=== PATIENT | female | born 1940 | race African-American/Black ===

== ENCOUNTER 2022-06-29 16:01 | Inpatient (IN) ==
[2022-06-29] MEDS ORDERED: SODIUM CHLORIDE 0.9% 1,000 ML IV STA (17:02)
[2022-06-29 18:29] LABS: Basophils % 0.4 % (0.0-0.8); Eosinophils # 0.1 10*3/uL (0.0-0.87); Eosinophils % 1.1 % (0.00-10.9); Immature Granulocytes % 0.5 %; Immature Granulocytes Absolute 0.04 #; Lymphocytes # 1.3 10*3/uL (1.4-4.0); Lymphocytes % 17.6 % (21.3-54.2); Mean Corpuscular HGB Conc 32.7 GM/DL (32-36); Mean Corpuscular Volume 89.7 FL (87-102); Mean Platelet Volume 9.3 FL (9.6-12.0); Monocytes # 0.6 10*3/uL (0.11-0.8); Monocytes % 7.7 % (1.7-12.7); Neutrophils % 72.7 % (38.7-73.9); Platelet Count 195 T/CUMM (130-400); Red Blood Count 5.46 MC/CUMM (3.8-5.5); Red Cell Distribution Width 12.9 % (9.3-17.3); White Blood Count 7.6 T/CUMM (4-12)
[2022-06-29 18:49] LABS: Alanine Aminotransferase 26 U/L (13-56); Albumin 2.8 G/DL (3.4-5.0); Alkaline Phosphatase 84 U/L (45-117); Aspartate Amino Transferase 39 U/L (0-37); Bilirubin,Total < 0.39 MG/DL (0.20-1.00); Blood Urea Nitrogen 15 MG/DL (7-18); Calcium 9.5 MG/DL (8.5-10.1); Carbon Dioxide 25 MMOL/L (21-32); Chloride 104 MMOL/L (98-107); Glucose 163 MG/DL (74-106); Osmolality,Calculated 277.8 MOS/KG (273-304); Potassium 3.6 MMOL/L (3.5-5.1); Sodium 137 MMOL/L (136-145); Total Protein 7.8 G/DL (6.4-8.2)
[2022-06-29 19:27] LABS: Urine Appearance Slightly Cloudy (Clear); Urine Color Yellow (Yellow); Urine Specific Gravity >= 1.030 (1.001-1.035); Urine pH 5.5 (4.5-8.0)
[2022-06-29 19:28] LABS: Bacteria,Urine Many /HPF (Few); Bilirubin,Urine Negative (Negative); Blood, Urine Small mg/dL (Negative); Glucose,Urine (UA) Negative (Negative); Ketones,Urine 15 mg/dL (Negative); Mucus,Urine Occasional /LPF (Occasional); Nitrite,Urine Positive (Negative); Protein,Urine 30 mg/dL (Negative); RBC,Urine 1 /HPF (0-4); Squamous Epithelial Cell,Urine Occasional /HPF (0-10); Urine Urobilinogen 0.2 eU/dL (<2.0)
[2022-06-29] MEDS ORDERED: cefTRIAXone 1,000 MG in SODIUM CHLORIDE 0.9% 100 ML IV STA (19:46)
[2022-06-29] MEDS ORDERED: GLUCAGON 1 MG VIAL IM PRN (20:28)
[2022-06-29] MEDS ORDERED: hydrALAZINE 20 MG/1 ML VIAL IV PRN (20:28)
[2022-06-29] MEDS ORDERED: DEXTROSE 10% 250 ML BAG IV PRN (20:28)
[2022-06-29] MEDS ORDERED: ACETAMINOPHEN 325 MG TABLET PO PRN (20:28)
[2022-06-29] MEDS ORDERED: ONDANSETRON 4 MG/2 ML VIAL IV PRN (20:28)
[2022-06-29] MEDS: SODIUM CHLORIDE 0.9% 1,000 ML IV SCH (21:15)
[2022-06-29 21:29] LABS: Thyroid Stimulating Hormone 1.05 uIU/ml (0.358-3.74)
[2022-06-29] MEDS: ENOXAPARIN 40 MG/0.4 ML SYRINGE SUBCUT SCH (21:45)
[2022-06-29] MEDS: INSULIN REGULAR 100 UNIT/ML SUBCUT SCH (21:58)
[2022-06-30] MEDS: MIRTAZAPINE 15 MG TABLET PO SCH ×2 (00:12→21:26)
[2022-06-30 01:04] LABS: Basophils % 0.3 % (0.0-0.8); Eosinophils % 0.2 % (0.00-10.9); Hematocrit 45.2 VOL% (35.7-47.0); Hemoglobin 14.4 GM/DL (12.0-16.0); Immature Granulocytes % 0.3 %; Immature Granulocytes Absolute 0.02 #; Lymphocytes # 1.6 10*3/uL (1.4-4.0); Lymphocytes % 28.3 % (21.3-54.2); Mean Corpuscular HGB Conc 31.9 GM/DL (32-36); Mean Corpuscular Volume 89.9 FL (87-102); Mean Platelet Volume 9.4 FL (9.6-12.0); Monocytes # 0.5 10*3/uL (0.11-0.8); Monocytes % 8.7 % (1.7-12.7); Neutrophils % 62.2 % (38.7-73.9); Platelet Count 165 T/CUMM (130-400); Red Blood Count 5.03 MC/CUMM (3.8-5.5); Red Cell Distribution Width 12.8 % (9.3-17.3); White Blood Count 5.8 T/CUMM (4-12)
[2022-06-30 01:27] LABS: Alanine Aminotransferase 21 U/L (13-56); Albumin 2.3 G/DL (3.4-5.0); Alkaline Phosphatase 66 U/L (45-117); Aspartate Amino Transferase 38 U/L (0-37); Bilirubin,Total < 0.39 MG/DL (0.20-1.00); Blood Urea Nitrogen 14 MG/DL (7-18); Calcium 8.5 MG/DL (8.5-10.1); Carbon Dioxide 22 MMOL/L (21-32); Chloride 110 MMOL/L (98-107); Cholesterol 124 MG/DL (50-200); Glucose 116 MG/DL (74-106); HDL Cholesterol 49 MG/DL (40-60); Osmolality,Calculated 282.3 MOS/KG (273-304); Potassium 3.4 MMOL/L (3.5-5.1); Risk Ratio 2.53; Sodium 141 MMOL/L (136-145); Total Protein 6.3 G/DL (6.4-8.2); Triglycerides 72 MG/DL (2-150); VLDL Cholesterol 14.4 MG/DL
[2022-06-30 05:45] LABS: Folate 13.02 NG/ML (5.38-24.0)
[2022-06-30] MEDS: INSULIN REGULAR 100 UNIT/ML SUBCUT SCH ×4 (11:39→21:26)
[2022-06-30] MEDS: SODIUM CHLORIDE 0.9% 1,000 ML IV SCH (12:04)
[2022-06-30] MEDS: PANTOPRAZOLE 40 MG TABLET PO SCH (12:14)
[2022-06-30] MEDS ORDERED: POTASSIUM CHLORIDE 20 MEQ TABLET PO ONE (15:00)
[2022-06-30] MEDS: amLODIPine 5 MG TABLET PO SCH (16:46)
[2022-06-30] MEDS: ENOXAPARIN 40 MG/0.4 ML SYRINGE SUBCUT SCH (21:26)
[2022-06-30] MEDS: DONEPEZIL 5 MG TABLET PO SCH (21:26)
[2022-06-30] MEDS: cefTRIAXone 1,000 MG in SODIUM CHLORIDE 0.9% 100 ML IV SCH (23:06)
[2022-07-01] MEDS: SODIUM CHLORIDE 0.9% 1,000 ML IV SCH ×2 (02:30→15:40)
[2022-07-01 05:03] LABS: Basophils % 0.4 % (0.0-0.8); Eosinophils % 0.2 % (0.00-10.9); Hematocrit 38.9 VOL% (35.7-47.0); Hemoglobin 12.3 GM/DL (12.0-16.0); Immature Granulocytes % 0.4 %; Immature Granulocytes Absolute 0.02 #; Lymphocytes # 2.3 10*3/uL (1.4-4.0); Lymphocytes % 44.6 % (21.3-54.2); Mean Corpuscular HGB Conc 31.6 GM/DL (32-36); Mean Corpuscular Volume 92.2 FL (87-102); Mean Platelet Volume 9.3 FL (9.6-12.0); Monocytes # 0.4 10*3/uL (0.11-0.8); Monocytes % 7.9 % (1.7-12.7); Neutrophils % 46.5 % (38.7-73.9); Platelet Count 184 T/CUMM (130-400); Red Blood Count 4.22 MC/CUMM (3.8-5.5); Red Cell Distribution Width 13.1 % (9.3-17.3); White Blood Count 5.1 T/CUMM (4-12)
[2022-07-01 05:26] LABS: Calcium 8.4 MG/DL (8.5-10.1); Osmolality,Calculated 286.8 MOS/KG (273-304); Potassium 3.3 MMOL/L (3.5-5.1)
[2022-07-01] MEDS: INSULIN REGULAR 100 UNIT/ML SUBCUT SCH ×4 (08:42→21:36)
[2022-07-01] MEDS: amLODIPine 5 MG TABLET PO SCH (08:42)
[2022-07-01] MEDS: PANTOPRAZOLE 40 MG TABLET PO SCH (08:42)
[2022-07-01] MEDS ORDERED: POTASSIUM CHLORIDE 20 MEQ TABLET PO ONE (11:00)
[2022-07-01] MEDS: MIRTAZAPINE 15 MG TABLET PO SCH (20:56)
[2022-07-01] MEDS: DONEPEZIL 5 MG TABLET PO SCH (20:56)
[2022-07-01] MEDS: cefTRIAXone 1,000 MG in SODIUM CHLORIDE 0.9% 100 ML IV SCH (20:57)
[2022-07-01] MEDS: ENOXAPARIN 40 MG/0.4 ML SYRINGE SUBCUT SCH (20:57)
[2022-07-02 05:05] LABS: Basophils % 0.5 % (0.0-0.8); Eosinophils % 0.6 % (0.00-10.9); Hematocrit 38.5 VOL% (35.7-47.0); Hemoglobin 12.2 GM/DL (12.0-16.0); Immature Granulocytes % 0.3 %; Immature Granulocytes Absolute 0.02 #; Lymphocytes # 3.1 10*3/uL (1.4-4.0); Lymphocytes % 46.6 % (21.3-54.2); Mean Corpuscular HGB Conc 31.7 GM/DL (32-36); Mean Corpuscular Volume 91.4 FL (87-102); Mean Platelet Volume 9.3 FL (9.6-12.0); Monocytes # 0.4 10*3/uL (0.11-0.8); Monocytes % 5.5 % (1.7-12.7); Neutrophils % 46.5 % (38.7-73.9); Platelet Count 196 T/CUMM (130-400); Red Blood Count 4.21 MC/CUMM (3.8-5.5); Red Cell Distribution Width 13.1 % (9.3-17.3); White Blood Count 6.6 T/CUMM (4-12)
[2022-07-02 05:25] LABS: Calcium 7.7 MG/DL (8.5-10.1); Osmolality,Calculated 286.6 MOS/KG (273-304); Potassium 3.2 MMOL/L (3.5-5.1)
[2022-07-02] MEDS: SODIUM CHLORIDE 0.9% 1,000 ML IV SCH ×2 (05:35→17:25)
[2022-07-02] MEDS: POTASSIUM CHLORIDE 20 MEQ TABLET PO PRN ×4 (06:08→12:50)
[2022-07-02] MEDS: PANTOPRAZOLE 40 MG TABLET PO SCH (08:15)
[2022-07-02] MEDS: amLODIPine 5 MG TABLET PO SCH (08:15)
[2022-07-02] MEDS: INSULIN REGULAR 100 UNIT/ML SUBCUT SCH ×4 (08:19→20:35)
[2022-07-02] MEDS ORDERED: POTASSIUM CHLORIDE 20 MEQ TABLET PO ONE (10:56)
[2022-07-02] MEDS: ENOXAPARIN 40 MG/0.4 ML SYRINGE SUBCUT SCH (20:34)
[2022-07-02] MEDS: MIRTAZAPINE 15 MG TABLET PO SCH (20:34)
[2022-07-02] MEDS: DONEPEZIL 5 MG TABLET PO SCH (20:34)
[2022-07-02] MEDS: cefTRIAXone 1,000 MG in SODIUM CHLORIDE 0.9% 100 ML IV SCH (20:35)
[2022-07-03 06:06] LABS: Basophils % 0.3 % (0.0-0.8); Eosinophils # 0.1 10*3/uL (0.0-0.87); Hematocrit 39.1 VOL% (35.7-47.0); Hemoglobin 12.8 GM/DL (12.0-16.0); Immature Granulocytes % 0.4 %; Immature Granulocytes Absolute 0.03 #; Lymphocytes # 3.7 10*3/uL (1.4-4.0); Lymphocytes % 46.9 % (21.3-54.2); Mean Corpuscular HGB Conc 32.7 GM/DL (32-36); Mean Corpuscular Volume 89.9 FL (87-102); Mean Platelet Volume 9.6 FL (9.6-12.0); Monocytes # 0.4 10*3/uL (0.11-0.8); Monocytes % 5.2 % (1.7-12.7); Neutrophils % 46.2 % (38.7-73.9); Platelet Count 256 T/CUMM (130-400); Red Blood Count 4.35 MC/CUMM (3.8-5.5); Red Cell Distribution Width 12.7 % (9.3-17.3); White Blood Count 7.8 T/CUMM (4-12)
[2022-07-03 06:18] LABS: Calcium 8.5 MG/DL (8.5-10.1); Osmolality,Calculated 274.4 MOS/KG (273-304); Potassium 3.5 MMOL/L (3.5-5.1)
[2022-07-03] MEDS: SODIUM CHLORIDE 0.9% 1,000 ML IV SCH ×3 (06:46→22:06)
[2022-07-03] MEDS: INSULIN REGULAR 100 UNIT/ML SUBCUT SCH ×4 (08:27→22:04)
[2022-07-03] MEDS: PANTOPRAZOLE 40 MG TABLET PO SCH (08:29)
[2022-07-03] MEDS: amLODIPine 5 MG TABLET PO SCH (08:29)
[2022-07-03] MEDS ORDERED: REMDESIVIR 100 MG in SODIUM CHLORIDE 0.9% 100 ML IV SCH (09:00)
[2022-07-03] MEDS ORDERED: POLYETHYLENE GLYCOL POWDER 17 GM PACK PO PRN (10:57)
[2022-07-03] MEDS ORDERED: MAGNESIUM HYDROXIDE SUSP 30 ML UDCUP PO ONE (10:57)
[2022-07-03] MEDS ORDERED: REMDESIVIR 200 MG in SODIUM CHLORIDE 0.9% 210 ML IV ONE (11:00)
[2022-07-03] MEDS: ZINC SULFATE 220 MG CAPSULE PO SCH (11:44)
[2022-07-03] MEDS: CHOLECALCIFEROL 400 UNIT TABLET PO SCH (11:44)
[2022-07-03] MEDS: ENOXAPARIN 40 MG/0.4 ML SYRINGE SUBCUT SCH (22:04)
[2022-07-03] MEDS: cefTRIAXone 1,000 MG in SODIUM CHLORIDE 0.9% 100 ML IV SCH (22:05)
[2022-07-03] MEDS: DONEPEZIL 5 MG TABLET PO SCH (22:05)
[2022-07-03] MEDS: MIRTAZAPINE 15 MG TABLET PO SCH (22:05)
[2022-07-03] MEDS: ASCORBIC ACID 500 MG TABLET PO SCH (22:05)
[2022-07-04 05:33] LABS: Basophils % 0.4 % (0.0-0.8); Eosinophils # 0.1 10*3/uL (0.0-0.87); Hematocrit 36.1 VOL% (35.7-47.0); Hemoglobin 11.7 GM/DL (12.0-16.0); Immature Granulocytes % 0.4 %; Immature Granulocytes Absolute 0.03 #; Lymphocytes # 2.7 10*3/uL (1.4-4.0); Lymphocytes % 38.2 % (21.3-54.2); Mean Corpuscular HGB Conc 32.4 GM/DL (32-36); Mean Corpuscular Volume 89.8 FL (87-102); Mean Platelet Volume 9.3 FL (9.6-12.0); Monocytes # 0.5 10*3/uL (0.11-0.8); Monocytes % 6.9 % (1.7-12.7); Neutrophils % 53.1 % (38.7-73.9); Platelet Count 277 T/CUMM (130-400); Red Blood Count 4.02 MC/CUMM (3.8-5.5); Red Cell Distribution Width 12.7 % (9.3-17.3); White Blood Count 7.2 T/CUMM (4-12)
[2022-07-04 05:52] LABS: Alanine Aminotransferase 30 U/L (13-56); Albumin 1.8 G/DL (3.4-5.0); Alkaline Phosphatase 62 U/L (45-117); Aspartate Amino Transferase 36 U/L (0-37); Bilirubin,Total < 0.39 MG/DL (0.20-1.00); Blood Urea Nitrogen 10 MG/DL (7-18); Calcium 8.2 MG/DL (8.5-10.1); Carbon Dioxide 24 MMOL/L (21-32); Chloride 110 MMOL/L (98-107); Glucose 124 MG/DL (74-106); Osmolality,Calculated 280.3 MOS/KG (273-304); Potassium 3.6 MMOL/L (3.5-5.1); Sodium 141 MMOL/L (136-145); Total Protein 5.6 G/DL (6.4-8.2)
[2022-07-04 07:57] LABS: Platelet Estimate Normal
[2022-07-04] MEDS: INSULIN REGULAR 100 UNIT/ML SUBCUT SCH ×4 (08:35→20:50)
[2022-07-04] MEDS: amLODIPine 5 MG TABLET PO SCH (10:13)
[2022-07-04] MEDS: CHOLECALCIFEROL 400 UNIT TABLET PO SCH (10:13)
[2022-07-04] MEDS: REMDESIVIR 100 MG in SODIUM CHLORIDE 0.9% 100 ML IV SCH (10:13)
[2022-07-04] MEDS: ASCORBIC ACID 500 MG TABLET PO SCH ×2 (10:13→20:50)
[2022-07-04] MEDS: PANTOPRAZOLE 40 MG TABLET PO SCH (10:13)
[2022-07-04] MEDS: ZINC SULFATE 220 MG CAPSULE PO SCH (10:13)
[2022-07-04] MEDS ORDERED: cefTRIAXone 1,000 MG in SODIUM CHLORIDE 0.9% 100 ML IV SCH (14:30)
[2022-07-04] MEDS: DOXYCYCLINE HYCLATE INJ 100 MG in SODIUM CHLORIDE 0.9% 100 ML IV SCH (17:08)
[2022-07-04] MEDS: SODIUM CHLORIDE 0.9% 1,000 ML IV SCH (17:37)
[2022-07-04] MEDS: ENOXAPARIN 40 MG/0.4 ML SYRINGE SUBCUT SCH (20:50)
[2022-07-04] MEDS: DONEPEZIL 5 MG TABLET PO SCH (20:50)
[2022-07-04] MEDS: MIRTAZAPINE 15 MG TABLET PO SCH (20:50)
[2022-07-04] MEDS: cefTRIAXone 1,000 MG in SODIUM CHLORIDE 0.9% 100 ML IV SCH (22:27)
[2022-07-05] MEDS: SODIUM CHLORIDE 0.9% 1,000 ML IV SCH ×2 (02:37→18:01)
[2022-07-05] MEDS: DOXYCYCLINE HYCLATE INJ 100 MG in SODIUM CHLORIDE 0.9% 100 ML IV SCH ×2 (02:38→15:22)
[2022-07-05 05:43] LABS: Alanine Aminotransferase 27 U/L (13-56); Alkaline Phosphatase 65 U/L (45-117); Aspartate Amino Transferase 26 U/L (0-37); Bilirubin,Total < 0.39 MG/DL (0.20-1.00); Blood Urea Nitrogen 10 MG/DL (7-18); Calcium 8.1 MG/DL (8.5-10.1); Carbon Dioxide 27 MMOL/L (21-32); Chloride 112 MMOL/L (98-107); Glucose 104 MG/DL (74-106); Potassium 3.4 MMOL/L (3.5-5.1); Sodium 143 MMOL/L (136-145); Total Protein 5.6 G/DL (6.4-8.2)
[2022-07-05] MEDS: REMDESIVIR 100 MG in SODIUM CHLORIDE 0.9% 100 ML IV SCH (09:57)
[2022-07-05] MEDS: PANTOPRAZOLE 40 MG TABLET PO SCH (09:57)
[2022-07-05] MEDS: CHOLECALCIFEROL 400 UNIT TABLET PO SCH (09:57)
[2022-07-05] MEDS: ZINC SULFATE 220 MG CAPSULE PO SCH (09:57)
[2022-07-05] MEDS: ASCORBIC ACID 500 MG TABLET PO SCH ×2 (09:57→22:04)
[2022-07-05] MEDS: amLODIPine 5 MG TABLET PO SCH (09:58)
[2022-07-05] MEDS: INSULIN REGULAR 100 UNIT/ML SUBCUT SCH ×4 (11:14→22:18)
[2022-07-05] MEDS ORDERED: POTASSIUM CHLORIDE 20 MEQ TABLET PO ONE (11:46)
[2022-07-05] MEDS: DONEPEZIL 5 MG TABLET PO SCH (22:04)
[2022-07-05] MEDS: MIRTAZAPINE 15 MG TABLET PO SCH (22:05)
[2022-07-05] MEDS: cefTRIAXone 1,000 MG in SODIUM CHLORIDE 0.9% 100 ML IV SCH (22:50)
[2022-07-05] MEDS: ENOXAPARIN 40 MG/0.4 ML SYRINGE SUBCUT SCH (22:50)
[2022-07-06] MEDS: DOXYCYCLINE HYCLATE INJ 100 MG in SODIUM CHLORIDE 0.9% 100 ML IV SCH ×2 (02:46→16:02)
[2022-07-06 07:06] LABS: Basophils # 0.1 10*3/uL (0.0-0.2); Basophils % 0.4 % (0.0-0.8); Eosinophils # 0.1 10*3/uL (0.0-0.87); Eosinophils % 0.6 % (0.00-10.9); Hematocrit 42.7 VOL% (35.7-47.0); Hemoglobin 14.1 GM/DL (12.0-16.0); Immature Granulocytes % 0.6 %; Immature Granulocytes Absolute 0.07 #; Lymphocytes # 3.1 10*3/uL (1.4-4.0); Lymphocytes % 25.4 % (21.3-54.2); Mean Platelet Volume 9.2 FL (9.6-12.0); Monocytes # 0.9 10*3/uL (0.11-0.8); Monocytes % 7.1 % (1.7-12.7); Neutrophils % 65.9 % (38.7-73.9); Platelet Count 399 T/CUMM (130-400); White Blood Count 12.2 T/CUMM (4-12)
[2022-07-06 07:41] LABS: Osmolality,Calculated 274.7 MOS/KG (273-304); Potassium 3.5 MMOL/L (3.5-5.1)
[2022-07-06] MEDS: amLODIPine 5 MG TABLET PO SCH ×2 (10:01→10:18)
[2022-07-06] MEDS: ZINC SULFATE 220 MG CAPSULE PO SCH ×2 (10:01→10:18)
[2022-07-06] MEDS: ASCORBIC ACID 500 MG TABLET PO SCH ×3 (10:01→22:00)
[2022-07-06] MEDS: INSULIN REGULAR 100 UNIT/ML SUBCUT SCH ×5 (10:02→21:45)
[2022-07-06] MEDS: PANTOPRAZOLE 40 MG TABLET PO SCH ×2 (10:02→10:18)
[2022-07-06] MEDS: CHOLECALCIFEROL 400 UNIT TABLET PO SCH ×2 (10:02→10:18)
[2022-07-06] MEDS: ENOXAPARIN 40 MG/0.4 ML SYRINGE SUBCUT SCH (21:59)
[2022-07-06] MEDS: cefTRIAXone 1,000 MG in SODIUM CHLORIDE 0.9% 100 ML IV SCH (21:59)
[2022-07-06] MEDS: MIRTAZAPINE 15 MG TABLET PO SCH (22:00)
[2022-07-06] MEDS: DONEPEZIL 5 MG TABLET PO SCH (22:00)
[2022-07-06] MEDS: SODIUM CHLORIDE 0.9% 1,000 ML IV SCH (22:01)
[2022-07-07] MEDS: DOXYCYCLINE HYCLATE INJ 100 MG in SODIUM CHLORIDE 0.9% 100 ML IV SCH ×2 (03:58→15:17)
[2022-07-07 04:59] LABS: Basophils % 0.4 % (0.0-0.8); Eosinophils # 0.1 10*3/uL (0.0-0.87); Eosinophils % 0.6 % (0.00-10.9); Hematocrit 37.2 VOL% (35.7-47.0); Immature Granulocytes % 0.6 %; Immature Granulocytes Absolute 0.06 #; Lymphocytes # 3.1 10*3/uL (1.4-4.0); Lymphocytes % 30.5 % (21.3-54.2); Mean Corpuscular HGB Conc 32.5 GM/DL (32-36); Mean Corpuscular Volume 88.4 FL (87-102); Monocytes % 9.5 % (1.7-12.7); Neutrophils % 58.4 % (38.7-73.9); Platelet Count 393 T/CUMM (130-400); Red Blood Count 4.21 MC/CUMM (3.8-5.5); Red Cell Distribution Width 13.1 % (9.3-17.3); White Blood Count 10.2 T/CUMM (4-12)
[2022-07-07 05:20] LABS: Calcium 8.6 MG/DL (8.5-10.1); Osmolality,Calculated 281.1 MOS/KG (273-304); Potassium 3.2 MMOL/L (3.5-5.1)
[2022-07-07 06:54] LABS: Hemoglobin 12.1 GM/DL (12.0-16.0)
[2022-07-07] MEDS: INSULIN REGULAR 100 UNIT/ML SUBCUT SCH ×4 (09:18→21:46)
[2022-07-07] MEDS: ASCORBIC ACID 500 MG TABLET PO SCH ×2 (09:19→22:15)
[2022-07-07] MEDS: PANTOPRAZOLE 40 MG TABLET PO SCH (09:19)
[2022-07-07] MEDS: CHOLECALCIFEROL 400 UNIT TABLET PO SCH (09:19)
[2022-07-07] MEDS: amLODIPine 5 MG TABLET PO SCH (09:19)
[2022-07-07] MEDS: ZINC SULFATE 220 MG CAPSULE PO SCH (09:19)
[2022-07-07] MEDS: SODIUM CHLORIDE 0.9% 1,000 ML IV SCH ×2 (11:01→18:33)
[2022-07-07] MEDS: SODIUM CHLOR 0.9% KCL 20 MEQ 20 MEQ/1,000 ML BAG IV SCH (11:55)
[2022-07-07] MEDS: ENOXAPARIN 40 MG/0.4 ML SYRINGE SUBCUT SCH (22:14)
[2022-07-07] MEDS: DONEPEZIL 5 MG TABLET PO SCH (22:14)
[2022-07-07] MEDS: cefTRIAXone 1,000 MG in SODIUM CHLORIDE 0.9% 100 ML IV SCH (22:14)
[2022-07-07] MEDS: MIRTAZAPINE 15 MG TABLET PO SCH (22:15)
[2022-07-08] MEDS: SODIUM CHLOR 0.9% KCL 20 MEQ 20 MEQ/1,000 ML BAG IV SCH ×2 (02:45→22:08)
[2022-07-08] MEDS: DOXYCYCLINE HYCLATE INJ 100 MG in SODIUM CHLORIDE 0.9% 100 ML IV SCH ×2 (02:45→17:00)
[2022-07-08 05:52] LABS: Basophils % 0.6 % (0.0-0.8); Eosinophils # 0.1 10*3/uL (0.0-0.87); Eosinophils % 1.4 % (0.00-10.9); Hematocrit 35.5 VOL% (35.7-47.0); Hemoglobin 11.3 GM/DL (12.0-16.0); Immature Granulocytes % 0.4 %; Immature Granulocytes Absolute 0.03 #; Lymphocytes # 3.1 10*3/uL (1.4-4.0); Lymphocytes % 43.3 % (21.3-54.2); Mean Corpuscular HGB Conc 31.8 GM/DL (32-36); Mean Corpuscular Volume 90.8 FL (87-102); Mean Platelet Volume 8.9 FL (9.6-12.0); Monocytes # 0.8 10*3/uL (0.11-0.8); Monocytes % 10.8 % (1.7-12.7); Neutrophils % 43.5 % (38.7-73.9); Platelet Count 396 T/CUMM (130-400); Red Blood Count 3.91 MC/CUMM (3.8-5.5); Red Cell Distribution Width 13.2 % (9.3-17.3); White Blood Count 7.2 T/CUMM (4-12)
[2022-07-08 06:24] LABS: Calcium 8.5 MG/DL (8.5-10.1); Potassium 3.3 MMOL/L (3.5-5.1)
[2022-07-08] MEDS: CHOLECALCIFEROL 400 UNIT TABLET PO SCH (09:11)
[2022-07-08] MEDS: ZINC SULFATE 220 MG CAPSULE PO SCH (09:11)
[2022-07-08] MEDS: amLODIPine 5 MG TABLET PO SCH (09:12)
[2022-07-08] MEDS: ASCORBIC ACID 500 MG TABLET PO SCH ×2 (09:12→22:09)
[2022-07-08] MEDS: PANTOPRAZOLE 40 MG TABLET PO SCH (09:12)
[2022-07-08] MEDS ORDERED: POTASSIUM CHLORIDE 20 MEQ TABLET PO ONE (10:30)
[2022-07-08] MEDS: INSULIN REGULAR 100 UNIT/ML SUBCUT SCH ×4 (10:42→21:30)
[2022-07-08] MEDS: MIRTAZAPINE 15 MG TABLET PO SCH (22:09)
[2022-07-08] MEDS: ENOXAPARIN 40 MG/0.4 ML SYRINGE SUBCUT SCH (22:09)
[2022-07-08] MEDS: DONEPEZIL 5 MG TABLET PO SCH (22:09)
[2022-07-09] MEDS: DOXYCYCLINE HYCLATE INJ 100 MG in SODIUM CHLORIDE 0.9% 100 ML IV SCH ×2 (03:24→15:50)
[2022-07-09 06:21] LABS: Basophils # 0.1 10*3/uL (0.0-0.2); Basophils % 0.4 % (0.0-0.8); Eosinophils # 0.1 10*3/uL (0.0-0.87); Eosinophils % 0.8 % (0.00-10.9); Hematocrit 38.9 VOL% (35.7-47.0); Hemoglobin 12.6 GM/DL (12.0-16.0); Immature Granulocytes % 0.6 %; Immature Granulocytes Absolute 0.07 #; Lymphocytes # 3.4 10*3/uL (1.4-4.0); Lymphocytes % 29.3 % (21.3-54.2); Mean Corpuscular HGB Conc 32.4 GM/DL (32-36); Mean Corpuscular Volume 89.4 FL (87-102); Mean Platelet Volume 9.6 FL (9.6-12.0); Monocytes # 1.2 10*3/uL (0.11-0.8); Monocytes % 10.7 % (1.7-12.7); Neutrophils % 58.2 % (38.7-73.9); Platelet Count 429 T/CUMM (130-400); Red Blood Count 4.35 MC/CUMM (3.8-5.5); White Blood Count 11.5 T/CUMM (4-12)
[2022-07-09 06:36] LABS: Calcium 8.5 MG/DL (8.5-10.1)
[2022-07-09] MEDS: INSULIN REGULAR 100 UNIT/ML SUBCUT SCH ×4 (07:29→21:54)
[2022-07-09] MEDS: PANTOPRAZOLE 40 MG TABLET PO SCH (12:01)
[2022-07-09] MEDS: amLODIPine 5 MG TABLET PO SCH (12:01)
[2022-07-09] MEDS: ASCORBIC ACID 500 MG TABLET PO SCH ×2 (12:01→20:59)
[2022-07-09] MEDS: ZINC SULFATE 220 MG CAPSULE PO SCH (12:01)
[2022-07-09] MEDS: CHOLECALCIFEROL 400 UNIT TABLET PO SCH (12:01)
[2022-07-09 13:24] LABS: INR 1.2; PT Patient Result 13.4 SECS (10.1-12.1)
[2022-07-09] MEDS ORDERED: propofoL 200 MG/20 ML VIAL IV ONE (14:45)
[2022-07-09] MEDS ORDERED: LIDOCAINE 2% 5 ML VIAL ONE (14:45)
[2022-07-09] MEDS: SODIUM CHLOR 0.9% KCL 20 MEQ 20 MEQ/1,000 ML BAG IV SCH ×2 (15:50→20:00)
[2022-07-09 16:01] LABS: Mycoplasma pneumoniae Ab Inter SEE COMMENTS; Mycoplasma pneumoniae Ab, IgG Positive (Negative); Mycoplasma pneumoniae Ab, IgM Negative (Negative)
[2022-07-09] MEDS: MIRTAZAPINE 15 MG TABLET PO SCH (20:59)
[2022-07-09] MEDS: ENOXAPARIN 40 MG/0.4 ML SYRINGE SUBCUT SCH (20:59)
[2022-07-09] MEDS: DONEPEZIL 5 MG TABLET PO SCH (20:59)
[2022-07-10] MEDS: DOXYCYCLINE HYCLATE INJ 100 MG in SODIUM CHLORIDE 0.9% 100 ML IV SCH ×2 (02:05→16:39)
[2022-07-10 04:49] LABS: Basophils % 0.4 % (0.0-0.8); Eosinophils # 0.1 10*3/uL (0.0-0.87); Eosinophils % 0.7 % (0.00-10.9); Hematocrit 36.1 VOL% (35.7-47.0); Hemoglobin 11.7 GM/DL (12.0-16.0); Immature Granulocytes % 0.5 %; Immature Granulocytes Absolute 0.05 #; Lymphocytes # 2.6 10*3/uL (1.4-4.0); Lymphocytes % 26.5 % (21.3-54.2); Mean Corpuscular HGB Conc 32.4 GM/DL (32-36); Mean Corpuscular Volume 89.4 FL (87-102); Mean Platelet Volume 8.9 FL (9.6-12.0); Monocytes # 0.7 10*3/uL (0.11-0.8); Monocytes % 7.4 % (1.7-12.7); Neutrophils % 64.5 % (38.7-73.9); Platelet Count 404 T/CUMM (130-400); Red Blood Count 4.04 MC/CUMM (3.8-5.5); Red Cell Distribution Width 13.2 % (9.3-17.3); White Blood Count 9.9 T/CUMM (4-12)
[2022-07-10 05:16] LABS: Calcium 8.8 MG/DL (8.5-10.1); Potassium 3.5 MMOL/L (3.5-5.1)
[2022-07-10] MEDS: INSULIN REGULAR 100 UNIT/ML SUBCUT SCH ×4 (08:44→21:07)
[2022-07-10] MEDS: ASCORBIC ACID 500 MG TABLET PO SCH ×2 (09:12→21:39)
[2022-07-10] MEDS: CHOLECALCIFEROL 400 UNIT TABLET PO SCH (09:12)
[2022-07-10] MEDS: amLODIPine 5 MG TABLET PO SCH (09:12)
[2022-07-10] MEDS: ZINC SULFATE 220 MG CAPSULE PO SCH (09:12)
[2022-07-10] MEDS: PANTOPRAZOLE 40 MG TABLET PO SCH (09:12)
[2022-07-10] MEDS: SODIUM CHLOR 0.9% KCL 20 MEQ 20 MEQ/1,000 ML BAG IV SCH (13:00)
[2022-07-10] MEDS: ENOXAPARIN 40 MG/0.4 ML SYRINGE SUBCUT SCH (21:39)
[2022-07-10] MEDS: DONEPEZIL 5 MG TABLET PO SCH (21:39)
[2022-07-10] MEDS: MIRTAZAPINE 15 MG TABLET PO SCH (21:39)
[2022-07-11] MEDS: DOXYCYCLINE HYCLATE INJ 100 MG in SODIUM CHLORIDE 0.9% 100 ML IV SCH ×2 (04:38→14:07)
[2022-07-11 06:59] LABS: Basophils # 0.1 10*3/uL (0.0-0.2); Basophils % 0.6 % (0.0-0.8); Eosinophils # 0.1 10*3/uL (0.0-0.87); Eosinophils % 0.8 % (0.00-10.9); Hematocrit 38.8 VOL% (35.7-47.0); Hemoglobin 12.5 GM/DL (12.0-16.0); Immature Granulocytes % 0.6 %; Immature Granulocytes Absolute 0.05 #; Lymphocytes # 2.7 10*3/uL (1.4-4.0); Lymphocytes % 32.2 % (21.3-54.2); Mean Corpuscular HGB Conc 32.2 GM/DL (32-36); Mean Corpuscular Volume 89.4 FL (87-102); Mean Platelet Volume 8.6 FL (9.6-12.0); Monocytes # 0.7 10*3/uL (0.11-0.8); Monocytes % 8.4 % (1.7-12.7); Neutrophils % 57.4 % (38.7-73.9); Platelet Count 369 T/CUMM (130-400); Red Blood Count 4.34 MC/CUMM (3.8-5.5); Red Cell Distribution Width 13.3 % (9.3-17.3); White Blood Count 8.5 T/CUMM (4-12)
[2022-07-11 07:16] LABS: Calcium 9.1 MG/DL (8.5-10.1); Osmolality,Calculated 280.1 MOS/KG (273-304); Potassium 3.4 MMOL/L (3.5-5.1)
[2022-07-11] MEDS: INSULIN REGULAR 100 UNIT/ML SUBCUT SCH ×4 (07:50→21:18)
[2022-07-11] MEDS: SODIUM CHLOR 0.9% KCL 20 MEQ 20 MEQ/1,000 ML BAG IV SCH ×2 (09:09→09:13)
[2022-07-11] MEDS: amLODIPine 5 MG TABLET PO SCH (09:10)
[2022-07-11] MEDS: CHOLECALCIFEROL 400 UNIT TABLET PO SCH (09:10)
[2022-07-11] MEDS: ASCORBIC ACID 500 MG TABLET PO SCH ×2 (09:10→21:17)
[2022-07-11] MEDS: PANTOPRAZOLE 40 MG TABLET PO SCH (09:10)
[2022-07-11] MEDS: ZINC SULFATE 220 MG CAPSULE PO SCH (09:10)
[2022-07-11] MEDS ORDERED: POTASSIUM CHLORIDE 20 MEQ TABLET PO ONE (11:34)
[2022-07-11] MEDS: DONEPEZIL 5 MG TABLET PO SCH (21:17)
[2022-07-11] MEDS: MIRTAZAPINE 15 MG TABLET PO SCH (21:17)
[2022-07-11] MEDS: ENOXAPARIN 40 MG/0.4 ML SYRINGE SUBCUT SCH (21:18)
[2022-07-12 06:07] LABS: Basophils % 0.4 % (0.0-0.8); Eosinophils # 0.1 10*3/uL (0.0-0.87); Eosinophils % 1.4 % (0.00-10.9); Hematocrit 35.5 VOL% (35.7-47.0); Hemoglobin 11.6 GM/DL (12.0-16.0); Immature Granulocytes % 0.6 %; Immature Granulocytes Absolute 0.05 #; Lymphocytes # 2.9 10*3/uL (1.4-4.0); Lymphocytes % 36.3 % (21.3-54.2); Mean Corpuscular HGB Conc 32.7 GM/DL (32-36); Mean Platelet Volume 8.9 FL (9.6-12.0); Monocytes # 0.9 10*3/uL (0.11-0.8); Monocytes % 11.1 % (1.7-12.7); Neutrophils % 50.2 % (38.7-73.9); Platelet Count 355 T/CUMM (130-400); Red Blood Count 3.99 MC/CUMM (3.8-5.5); Red Cell Distribution Width 13.4 % (9.3-17.3); White Blood Count 7.9 T/CUMM (4-12)
[2022-07-12 06:29] LABS: Calcium 8.8 MG/DL (8.5-10.1); Potassium 3.9 MMOL/L (3.5-5.1)
[2022-07-12] MEDS: ZINC SULFATE 220 MG CAPSULE PO SCH (09:53)
[2022-07-12] MEDS: ASCORBIC ACID 500 MG TABLET PO SCH ×2 (09:53→20:20)
[2022-07-12] MEDS: amLODIPine 5 MG TABLET PO SCH (09:53)
[2022-07-12] MEDS: PANTOPRAZOLE 40 MG TABLET PO SCH (09:53)
[2022-07-12] MEDS: CHOLECALCIFEROL 400 UNIT TABLET PO SCH (09:53)
[2022-07-12] MEDS: INSULIN REGULAR 100 UNIT/ML SUBCUT SCH ×3 (09:54→20:42)
[2022-07-12] MEDS ORDERED: DOXYCYCLINE HYCLATE 100 MG CAPSULE PO SCH (11:30)
[2022-07-12 11:42] LABS: % Iron Saturation 29.2 % (18-50)
[2022-07-12] MEDS: DONEPEZIL 5 MG TABLET PO SCH (20:19)
[2022-07-12] MEDS: metFORMIN 500 MG TABLET PO SCH (20:20)
[2022-07-12] MEDS: MIRTAZAPINE 15 MG TABLET PO SCH (20:20)
[2022-07-12] MEDS: ENOXAPARIN 40 MG/0.4 ML SYRINGE SUBCUT SCH (20:21)
[2022-07-13 06:28] LABS: Phosphorous 2.9 MG/DL (2.5-4.9)
[2022-07-13] MEDS: PANTOPRAZOLE 40 MG TABLET PO SCH (10:28)
[2022-07-13] MEDS: ASCORBIC ACID 500 MG TABLET PO SCH (10:28)
[2022-07-13] MEDS: amLODIPine 5 MG TABLET PO SCH (10:28)
[2022-07-13] MEDS: ZINC SULFATE 220 MG CAPSULE PO SCH (10:28)
[2022-07-13] MEDS: CHOLECALCIFEROL 400 UNIT TABLET PO SCH (10:28)
[2022-07-13] MEDS: metFORMIN 500 MG TABLET PO SCH (10:29)
[2022-07-13 15:58] VITALS: BP 128/63
[2022-07-13] MEDS: INSULIN REGULAR 100 UNIT/ML SUBCUT SCH ×2 (16:11→17:10)
== END 2022-07-13 17:00 | DRG 177 ==
LOC: EDUNIT# → EDBD → N.ED 16:01 → N.3E 22:14 → SUATTDRO 23:16 → N.3E 23:16
PROVIDERS: ADMIT Internal Medicine; ATTEND Internal Medicine
PROC: EGDWPEG (ICD-10-PCS; 2022-07-09 11:50)